=== PATIENT | male | born 2000 | race Caucasian/White ===

== ENCOUNTER 2022-02-20 10:02 | Emergency (ER) | payer SELFPAY ==
[~2022-02-20] VITALS: Ht 175.3 cm; Wt 68.0 kg
[2022-02-20] MEDS ORDERED: SODIUM CHLORIDE 0.9% 1,000 ML IV ONE (10:30)
[2022-02-20] MEDS ORDERED: LORAZEPAM 2MG/ML CPJ IV STA (10:30)
[2022-02-20] MEDS ORDERED: HALOPERIDOL LACTATE 5MG/ML VIAL IM STA (10:30)
[2022-02-20 10:51] VITALS: BP 124/75
== END 2022-02-20 10:40 | disposition left against medical advice (07) ==
LOC: ER 10:02 → EDBD 10:02 → ER 10:40
DX: F15.10 Other stimulant abuse, uncomplicated (principal); I10 Essential (primary) hypertension; R00.0 Tachycardia, unspecified; F17.290 Nicotine dependence, other tobacco product, uncomplicated
CPT/HCPCS: 99283; J7030